=== PATIENT | female | born 1985 | race Caucasian/White ===

== ENCOUNTER 2025-06-19 17:02 | Emergency (ER) | payer OTHER, SELFPAY ==
--- NOTE | ~2025-06-19 | XR_ITS ---
EXAMINATION: XR wrist RT min 3V, 06/19/2025 17:45 CDT HISTORY: medial and lateral pain x1 month. No injury. COMPARISON: No comparisons available. Findings: No acute fracture or malalignment. No significant degenerative changes. Soft tissues unremarkable. Impression: No acute fracture or malalignment. Reviewed, dictated and finalized at location A. Impression: No acute fracture or malalignment.
--- OUTSIDE RECORDS SUMMARY | 2025-06-19 17:08 | XMS_ITS | Encounter Summary ---
Author Organization [facility] Address [address] [place] [address] Phone Care Team Providers Care Access Database Developer Name Role Phone Elayne Medina MD Primary Care Provider Janette Hernández MD Unavailable Unavail able Leny Davis APRN, DIRECTOR OF DIVERSITY AND INCLUSION Primary Care Provider + Fransisca Casarez MD Unavailable Unavailable Reason for Visit * Reason Comments Medication Refill Encounter Details Date Type Department Care Team (Late st Contact Info) Description 06/28/2023 [facility]ill [facility] [address] [place] [id number] [place] [address] [place] [address] Medication Refill Social History Tobacco Use Types Packs/Day Years Used Date Smoking Tobacco: Never Smokeless Tobacco: Never Alcohol Use Standard Drinks/Week Comments Yes 0 (1 standard drink = 0.6 oz pur e alcohol) occasioanally PHQ-2 Answer Date Recorded Total Score - Questions 1-9 0 09/02 Education Answer Date Recorded What is the highest level of school you have completed or the highest degree you have received? Some college, no degree 06/19/2020 Comments No Sex and Gender Information Value Date Recorded Sex Assigned at Female 06/21/2024 1:09 PM CDT Legal Sex Female 3:50 AM SENIOR DB2 SYSTEMS PROGRAMMER Gender Identity Female 06/21/2024 1:09 PM CDT Sexual Orientation Straight 06/21/2024 1: 09 PM CDT documented as of this encounter Miscellaneous Notes * Telephone Encounter - Yojana Castro RN - 06/30/2023 8:27 AM CDT Medication warning Per nursing clinical judgement, provider to review and approve the medication(s) order(s) if appropriate. Requested Prescriptions Pending Prescriptions Disp Refills citalopram (CeleXA) 40 MG Tablet [Pharmacy Med Name: CITALOPRAM 40MG TABLETS] 90 Tablet 0 Sig: TAKE 1 TABLET BY MOUTH DAILY Citalopram (Celexa) (6 Month Refill Only) Protocol Passed - 06/28/2023 8:32 PM Passed - No test in the past 12 months or most recent test was negative Passed - No active on record Passed - Citalopram dose is less than or equal to 40mg / day Passed - Visit with relevant provider in past 6 months or upcoming 90 days Recent Visits Date Type Provider Dept 04/26/23 Office Visit Elayne Medina MD [facility] Showing recent visits within past 182 days and meeting all other requirements Future Appointments Date Type Provider Dept 08/29/23 Appointment Elayne Medina MD [facility] Showing future appointments within next 90 days and meeting all other requirements Passed - Patient has established therapy with Citalopram for at least 6 months Passed - Has an encounter in the past 6 months with a depression, anxiety, adjustment disorder, OCD, or PTSD visit diagnosis documented in this encounter Plan of Treatment Not on file documented as of this encounter Visit Diagnoses Diagnosis Depression with anxiety Dysthymic disorder documented in this encounter Additional Health Concerns Infection Onset Date Last Indicated Resolved Time COVID - 19 11/14/2023 11/14/2023 11/24/2023 12:1 6 AM SENIOR DB2 SYSTEMS PROGRAMMER Influenza 11/14/2023 11/14/2023 11/21/2023 12:1 6 AM SENIOR DB2 SYSTEMS PROGRAMMER COVID - 19 08/05/2024 08/05/2024 08/06/2024 12:5 0 AM SENIOR DB2 SYSTEMS PROGRAMMER Assessment Noted Time PHQ-9 Depression Total Score: 0 09/17/20 8:00 AM SENIOR DB2 SYSTEMS PROGRAMMER documented as of this encounter Care Teams Access Database Developer Relationship Specialty Start Date End Date Elayne Medina MD PCP - General Family Medicine 06/13/18 11/14/23 Leny Davis, CYCLING INSTRUCTOR, DIRECTOR OF DIVERSITY AND INCLUSION [address] [place] [address] PCP - General Advanced Practice Nurse 11/15/23 Janette Hernández MD Obstetrics & Gynecology 09/18/18 12/08/23 Fransisca Casarez MD [address] [place] [address] Gynecology 12/09/23 documented as of this encounter
--- OUTSIDE RECORDS SUMMARY | 2025-06-19 17:08 | XMS_ITS | Encounter Summary ---
Author Organization [facility] Address [address] [place] [address] Phone Care Team Providers Care Safekeeping Clerk Name Role Phone Leny Davis APRN, MANAGER HOSPICE Primary Care Provider + Fransisca Casarez MD Unavailable Unavailable Reason for Visit * Reason Comments Medication Refill Encounter Details Date Type Department Care Team (Late st Contact Info) Description 03/05/2024 Refill [facility] - Family Medicine - [place] [address] [place] [address] Traci Gutierrez APRN, MARI [address] [address] Medication Refill Social History Tobacco Use Types Packs/Day Years Used Date Smoking Tobacco: Never Smokeless Tobacco: Never Alcohol Use Standard Drinks/Week Comments Yes 0 (1 standard drink = 0.6 oz pur e alcohol) occasioanally [facility] Utilities Answer Date Recorded In the past 12 months has [employer] electric, gas, oil, or water company threatened to shut off services in your home? No 12/09/2023 Social Connection and Isolation Panel Answer Date Recorded In a typical week, how many times do you talk on the phone with family, friends, or neighbors? More than three times a week 12/09/2023 How often do you get togethe r with friends or relatives? Once a week 12/09/2023 How often do you attend chur ch or zoroastrianism services? More than 4 times per year 12/09/2023 Do you belong to any clubs o r organizations such as jew groups, unions, fraternal or athletic groups, or school groups? Patient declined 12/09/2023 How often do you attend meet ings of the clubs or organizations you belong to? Patient declined 12/09/2023 Are you , , di vorced, , never , or living with a partner? Living with partner 12/09/2023 AUDIT-C Answer Date Recorded Q1: How often do you have a drink containing alc ohol? Never 12/09/2023 Q2: How many drinks containi ng alcohol do you have on a typical day when you are drinking? 7 to 9 12/09/2023 Q3: How often do you have six or more drinks on one occasion? Never 12/09/2023 Overall Financial Resource Strain (CARDIA) Answe r Date Recorded How hard is it for you to pa y for the very basics like food, housing, medical care, and heating? Somewhat hard 12/09/2023 PHQ-2 Answer Date Recorded Total Score - Questions 1-9 0 09/02 [facility] - Occupational Stress Questionnaire Answer Date Recorded Do you feel stress - tense, restless, nervous, or anxious, or unable to sleep at night because your mind is troubled all the time - these days? To some extent 12/09/2023 Exercise Vital Sign Answer Date Recorde d On average, how many days pe r week do you engage in moderate to strenuous exercise (like a brisk walk)? 3 days 12/09/2023 On average, how many minutes do you engage in exercise at this level? 20 min 12/09/2023 Hunger Vital Sign Answer Date Recorded Within the past 12 months, y ou worried that your food would run out before you got the money to buy more. Sometimes true Within the past 12 months, t he food you bought just didn't last and you didn't have money to get more. Sometimes true 05/2024 PRAPARE - Transportation Answer Date Re corded In the past 12 months, has l ack of transportation kept you from medical appointments or from getting medications? No 05/2024 In the past 12 months, has l ack of transportation kept you from meetings, work, or from getting things needed for daily living? No 12/09/2023 Housing Stability Vital Sign Answer Omkar e Recorded In the last 12 months, was t here a time when you were not able to pay the mortgage or rent on time? No 12/09/2023 In the last 12 months, how many places have you lived? 2 12/09/2023 In the last 12 months, was t here a time when you did not have a steady place to sleep or slept in a residential (including now)? No 12/09/2023 Education Answer Date Recorded What is the highest level of school you have completed or the highest degree you have received? Some college, no degree 06/19/2020 Sexually Active Control Partners Comments Yes Male Comments No Sex and Gender Information Value Date Recorded Sex Assigned at Female 06/21/2024 1:09 PM CDT Legal Sex Female 3:50 AM HAND THERMAL CUTTER Gender Identity Female 06/21/2024 1:09 PM CDT Sexual Orientation Straight 06/21/2024 1: 09 PM CDT documented as of this encounter Miscellaneous Notes * Telephone Encounter - Yojana Castro RN - 03/06/2024 9:12 AM CDT Sent to [facility] in [place] after receiving request. documented in this encounter Plan of Treatment Not on file documented as of this encounter Visit Diagnoses Diagnosis Depression with anxiety Dysthymic disorder documented in this encounter Additional Health Concerns Infection Onset Date Last Indicated Resolved Time COVID - 19 08/05/2024 08/05/2024 08/06/2024 12:5 0 AM HAND THERMAL CUTTER Assessment Noted Time PHQ-9 Depression Total Score: 0 09/17/20 22 8:00 AM HAND THERMAL CUTTER documented as of this encounter Care Teams Safekeeping Clerk Relationship Specialty Start Date End Date Leny Davis, REC THERAPIST, MANAGER HOSPICE [address] [place] [id number] PCP - General Advanced Practice Nurse 11/15/23 Fransisca Casarez MD [address] [place] [address] Gynecology 12/09/23 documented as of this encounter
--- OUTSIDE RECORDS SUMMARY | 2025-06-19 17:08 | XMS_ITS | Encounter Summary ---
Author Organization [facility] Address [address] [place] [address] Phone Care Team Providers Care Review Trainer Name Role Phone Elayne Medina MD Primary Care Provider Janette Hernández MD Unavailable Unavail able Leny Davis SCRAP CRANE OPERATOR, CERTIFIED CAREGIVER Primary Care Provider + Fransisca Casarez MD Unavailable Unavailable Reason for Visit * Reason Comments Medication Refill Encounter Details Date Type Department Care Team (Late st Contact Info) Description 10/13/2021 Refill [facility] [address] [place] [address] Garth Lozano MD [address] [place] [address] Medication Refill Social History Tobacco Use Types Packs/Day Years Used Date Smoking Tobacco: Never Smokeless Tobacco: Never Alcohol Use Standard Drinks/Week Comments No 0 (1 standard drink = 0.6 oz pur e alcohol) PHQ-2 Answer Date Recorded Total Score - Questions 1-9 5 04/2022 Education Answer Date Recorded What is the highest level of school you have completed or the highest degree you have received? Some college, no degree 06/19/2020 Comments No Sex and Gender Information Value Date Recorded Sex Assigned at Female 06/21/2024 1:09 PM CDT Legal Sex Female 3:50 AM LUMBER TRIPPER Gender Identity Female 06/21/2024 1:09 PM CDT Sexual Orientation Straight 06/21/2024 1: 09 PM CDT COVID-19 Exposure Response Date Recorded In the last month, have you been in contact with someone who was confirmed or suspected to have Coronavirus / COVID-19? No / Unsure 10/09/2021 10:55 AM LUMBER TRIPPER documented as of this encounter Miscellaneous Notes * Telephone Encounter - Yi Arreola RN - 10/14/2021 12:39 PM CST Name from pharmacy: FLUCONAZOLE 150 MG TABLET Will file in chart as: fluconazole (DIFLUCAN) 150 MG Tablet The original prescription was discontinued on 10/09/2021 by Mounika Lu, PAC ER TRIPPER documented in this encounter Plan of Treatment Not on file documented as of this encounter Visit Diagnoses Not on filedocumented in this encounter Additional Health Concerns Infection Onset Date Last Indicated Resolved Time COVID - 19 11/14/2023 11/14/2023 11/24/2023 12:1 6 AM LUMBER TRIPPER Influenza 11/14/2023 11/14/2023 11/21/2023 12:1 6 AM LUMBER TRIPPER COVID - 19 08/05/2024 08/05/2024 08/06/2024 12:5 0 AM LUMBER TRIPPER Assessment Noted Time PHQ-9 Depression Total Score: 5 10/09/19 22 11:00 AM LUMBER TRIPPER documented as of this encounter Care Teams Review Trainer Relationship Specialty Start Date End Date Elayne Medina MD PCP - General Family Medicine 06/13/18 11/14/23 Leny Davis, SCRAP CRANE OPERATOR, CERTIFIED CAREGIVER [address] [place] [address] PCP - General Advanced Practice Nurse 11/15/23 Janette Hernández MD Obstetrics & Gynecology 09/18/18 12/08/23 Fransisca Casarez MD [address] [place] [address] Gynecology 12/09/23 documented as of this encounter
--- OUTSIDE RECORDS SUMMARY | 2025-06-19 17:08 | XMS_ITS | Encounter Summary ---
Author Organization [facility] Address [address] [place] [address] Phone Care Team Providers Care Buggy Ladle Tender Name Role Phone Janette Hernández MD Unavailable Unavail able Leny Davis APRN, REHABILITATION CASE COORDINATOR Primary Care Provider + Fransisca Casarez MD Unavailable Unavailable Reason for Visit * Reason Comments Medication Refill Encounter Details Date Type Department Care Team (Late st Contact Info) Description 12/08/2023 Refill [facility] - Family Medicine [facility] [address] [place] [address] Traci Gutierrez APRN, MARI [address] [address] Medication Refill Social History Tobacco Use Types Packs/Day Years Used Date Smoking Tobacco: Never Smokeless Tobacco: Never Alcohol Use Standard Drinks/Week Comments Yes 0 (1 standard drink = 0.6 oz pur e alcohol) occasioanally [facility] Utilities Answer Date Recorded In the past 12 months has e electric, gas, oil, or water company threatened [...] often do you attend chur ch or pentecostalism services? More than 4 times per year 12/09/2023 Do you belong to any clubs o r organizations such as quaker groups, unions, fraternal or athletic groups, or [...] Total Score - Questions 1-9 0 09/02 [facility] - Occupational [...] place to sleep or slept in a retirement (including now)? No 12/09/2023 Education Answer Date Recorded What is the highest level of school you have completed or the highest degree you have received? Some college, no degree 06/19/2020 Sexually Active Control Partners Comments Yes Male Comments No Sex and Gender Information Value Date Recorded Sex Assigned at Female 06/21/2024 1:09 PM CDT Legal Sex Female 3:50 AM GEOPHYSICAL OBSERVER Gender Identity Female 06/21/2024 1:09 PM CDT Sexual Orientation Straight 06/21/2024 1: 09 PM CDT documented as of this encounter Functional Status * AUDIT-C Score Answer Date of Assessment Author 3 12/09/2023 10:49 AM GEOPHYSICAL OBSERVER Feeligoenmanuel, System Background * Q1: How often do you have a drink containing alcohol? Answer Date of Assessment Author Never 12/09/2023 10:49 AM GEOPHYSICAL OBSERVER Christy, System Background * Q2: How many drinks containing alcohol do you have on a typical day when you are drinking? Answer Date of Assessment Author 7 to 9 12/09/2023 10:49 AM GEOPHYSICAL OBSERVER RockBeepatricia, System Background * Q3: How often do you have six or more drinks on one occasion? Answer Date of Assessment Author Never 12/09/2023 10:49 AM GEOPHYSICAL OBSERVER Christy, System Background * Question Answer Date of Assessment Author Little interest or pleasure in doing things Not at all 12/09/2023 11:41 AM Sabine Thornton, MILDRED Feeling down, depressed, or hopeless Not at all 12/09/2023 11:41 AM Sabine Thornton CMA * Over the past 2 weeks, how often have you been bothered by any of the following problems? Question Answer Date of Assessment Author Patient Health Questionnaire -2 Score 0 12/09/2023 11:41 AM GEOPHYSICAL OBSERVER Sabine Lea CMA documented as of this encounter Miscellaneous Notes * Telephone Encounter - Yojana Castro RN - 12/09/2023 8:33 AM CST Signed 1 week ago (11/28/2023): albuterol 108 (90 Base) MCG/ACT Aerosol Solution Sig: take 2 Puffs by inhalation every 6 hours as needed for Wheezing. Disp: 6.7 g Refills: 0 Signed by: Leny Davis APRN, REHABILITATION CASE COORDINATOR HYSICAL OBSERVER * Telephone Encounter - Mee Fernandes RN - 12/08/2023 8:39 AM GEOPHYSICAL OBSERVER Duplicate. Sent to this pharmacy 11-28-23 HYSICAL OBSERVER documented in this encounter Plan of Treatment Not on file documented as of this encounter Visit Diagnoses Diagnosis Moderate persistent asthma without complication Unspecified asthma documented in this encounter Additional Health Concerns Infection Onset Date Last Indicated Resolved Time COVID - 19 08/05/2024 08/05/2024 08/06/2024 12:5 0 AM GEOPHYSICAL OBSERVER Assessment Noted Time PHQ-9 Depression Total Score: 0 09/17/20 22 8:00 AM GEOPHYSICAL OBSERVER documented as of this encounter Care Teams Buggy Ladle Tender Relationship Specialty Start Date End Date Leny Davis APRN, REHABILITATION CASE COORDINATOR [address] [place] [address] PCP - General Advanced Practice Nurse 11/15/23 Janette Hernández MD Obstetrics & Gynecology 09/18/18 12/08/23 Fransisca Casarez MD [address] [place] [address] Gynecology 12/09/23 documented as of this encounter
--- OUTSIDE RECORDS SUMMARY | 2025-06-19 17:08 | XMS_ITS | Encounter Summary ---
Author Organization [facility] Address [address] [place] [address] Phone Care Team Providers Care Last Greaser Name Role Phone Elayne Medina MD Primary Care Provider Janette Hernández MD Unavailable Unavail able Leny Davis APRN, ADMITTANCE ATTENDANT Primary Care Provider + Fransisca Casarez MD Unavailable Unavailable Reason for Visit * Reason Comments Medication Refill Encounter Details Date Type Department Care Team (Late st Contact Info) Description 01/12/2021 Refill [facility] [address] [place] [address] [place] [address] [place] [address] Medication Refill Social History Tobacco Use Types Packs/Day Years Used Date Smoking Tobacco: Never Smokeless Tobacco: Never Alcohol Use Standard Drinks/Week Comments No 0 (1 standard drink = 0.6 oz pur e alcohol) PHQ-2 Answer Date Recorded Total Score - Questions 1-9 0 06/03 Education Answer Date Recorded What is the highest level of school you have completed or the highest degree you have received? Some college, no degree 06/19/2020 Comments No Sex and Gender Information Value Date Recorded Sex Assigned at Female 06/21/2024 1:09 PM CDT Legal Sex Female 3:50 AM RESPIRATORY CARE ASSISTANT Gender Identity Female 06/21/2024 1:09 PM CDT Sexual Orientation Straight 06/21/2024 1: 09 PM CDT documented as of this encounter Plan of Treatment Not on file documented as of this encounter Visit Diagnoses Not on filedocumented in this encounter Additional Health Concerns Infection Onset Date Last Indicated Resolved Time COVID - 19 08/03/2021 08/03/2021 08/23/2021 12:1 6 AM RESPIRATORY CARE ASSISTANT COVID - 19 Confirmed 08/03/2021 08/03/2021 021 12:16 AM RESPIRATORY CARE ASSISTANT COVID - 19 11/14/2023 11/14/2023 11/24/2023 12:1 6 AM RESPIRATORY CARE ASSISTANT Influenza 11/14/2023 11/14/2023 11/21/2023 12:1 6 AM RESPIRATORY CARE ASSISTANT COVID - 19 08/05/2024 08/05/2024 08/06/2024 12:5 0 AM RESPIRATORY CARE ASSISTANT Assessment Noted Time PHQ-9 Depression Total Score: 0 06/20/20 11:18 AM CDT documented as of this encounter Care Teams Last Greaser Relationship Specialty Start Date End Date Elayne Medina MD PCP - General Family Medicine 06/13/18 11/14/23 Leny Davis APRN, ADMITTANCE ATTENDANT [address] [place] [address] PCP - General Advanced Practice Nurse 11/15/23 Janette Hernández MD Obstetrics & Gynecology 09/18/18 12/08/23 Fransisca Casarez MD [address] [place] [address] Gynecology 12/09/23 documented as of this encounter
--- OUTSIDE RECORDS SUMMARY | 2025-06-19 17:08 | XMS_ITS | Encounter Summary ---
Author Organization [facility] Address [address] [place] [address] Phone Care Team Providers Care Recovery Auditor Name Role Phone Elayne Medina MD Primary Care Provider Janette Hernández MD Unavailable Unavail able Leny Davis APRN, TREE SURGEON Primary Care Provider + Fransisca Casarez MD Unavailable Unavailable Reason for Visit * Reason Comments Medication Refill Encounter Details Date Type Department Care Team (Late st Contact Info) Description 08/17/2022 Refill [facility] - Family Medicine [facility] [address] [place] [address] Mounika Lu, [facility] [address] [place] [address] Medication Refill Social History Tobacco Use Types [...] PM CDT Legal Sex Female 3:50 AM PILOT CONTROL OPERATOR HELPER Gender Identity Female 06/21/2024 1:09 PM CDT Sexual Orientation Straight 06/21/2024 1: 09 PM CDT documented as of this encounter Miscellaneous Notes * Telephone Encounter - Sujey Olivier RMA - 08/17/2022 12:41 PM PILOT CONTROL OPERATOR HELPER scheduled T CONTROL OPERATOR HELPER * Telephone Encounter - Fidelina Tate RN - 08/17/2022 12:16 PM PILOT CONTROL OPERATOR HELPER Patient is returning call. There are no specific directions as to what to do for patient. Was goingto schedule an appointment but did not want to make a visit if it is not needed. Please advise on what patient was being called about and call patient back. Thanks! T CONTROL OPERATOR HELPER * Telephone Encounter - Sujey Olivier RMA - 08/17/2022 11:02 AM PILOT CONTROL OPERATOR HELPER LVM T CONTROL OPERATOR HELPER * Telephone Encounter - Amina Blackwood RN - 08/17/2022 10:43 AM PILOT CONTROL OPERATOR HELPER Medication failed the protocol, provider to review and approve the medication order if appropriate. Requested Prescriptions Pending Prescriptions Disp Refills citalopram (CeleXA) 40 MG Tablet [Pharmacy Med Name: CITALOPRAM HBR 40 MG TABLET] 90 Tablet 0 Sig: TAKE 1 TABLET BY MOUTH EVERY DAY IN THE MORNING Citalopram (Celexa) (6 Month Refill Only) Protocol Failed - 08/17/2022 12:01 AM Failed - Visit with relevant provider in past 6 months or upcoming 90 days Recent Visits No visits were found meeting these conditions. Showing recent visits within past 182 days and meeting all other requirements Future Appointments No visits were found meeting these conditions. Showing future appointments within next 90 days and meeting all other requirements Failed - Has an encounter in the past 6 months with a depression, anxiety, adjustment disorder, OCD, or PTSD visit diagnosis Passed - No test in the past 12 months or most recent test was negative Passed - No active on record Passed - Citalopram dose is less than or equal to 40mg / day Passed - Patient has established therapy with Citalopram for at least 6 months T CONTROL OPERATOR HELPER documented in this encounter Plan of Treatment Not on file documented as of this encounter Visit Diagnoses Diagnosis Depression with anxiety Dysthymic disorder documented in this encounter Additional Health Concerns Infection Onset Date Last Indicated Resolved Time COVID - 11/14/2023 11/14/2023 11/24/2023 12:1 6 AM PILOT CONTROL OPERATOR HELPER Influenza 11/14/2023 11/14/2023 11/21/2023 12:1 6 AM PILOT CONTROL OPERATOR HELPER COVID - 08/05/2024 08/05/2024 08/06/2024 12:5 0 AM PILOT CONTROL OPERATOR HELPER Assessment Noted Time PHQ-9 Depression Total Score: 5 10/09/19 11:00 AM PILOT CONTROL OPERATOR HELPER documented as of this encounter Care Teams Recovery Auditor Relationship Specialty Start Date End Date Elayne Medina MD PCP - General Family Medicine 06/13/18 11/14/23 Leny Davis APRN, TREE SURGEON [address] [place] [address] PCP - General Advanced Practice Nurse 11/15/23 Janette Hernández MD Obstetrics & Gynecology 09/18/18 12/08/23 Fransisca Casarez MD [address] [place] [address] Gynecology 12/09/23 documented as of this encounter
--- OUTSIDE RECORDS SUMMARY | 2025-06-19 17:08 | XMS_ITS | Encounter Summary ---
Author Organization [facility] Address [address] [place] [address] Phone Care Team Providers Care Proof Machine Operator Name Role Phone Leny Davis MACHINE SANDER, SOLUTION DEVELOPER Primary Care Provider + Fransisca Casarez MD Unavailable Unavailable Reason for Visit * Reason Comments Medication Refill Encounter Details Date Type Department Care Team (Late st Contact Info) Description 04/10/2024 [facility]ill [facility] [address] [place] [address] Leny Davis, MACHINE SANDER, SOLUTION DEVELOPER [address] [place] [address] Medication Refill Social History Tobacco Use Types Packs/Day Years Used Date Smoking Tobacco: Never Smokeless Tobacco: Never Alcohol Use Standard Drinks/Week Comments Yes 0 (1 standard drink = 0.6 oz pur e alcohol) occasionally [facility] Utilities Answer Date Recorded In the past 12 months has [employer] electric, gas, oil, or water company threatened [...] often do you attend chur ch or evangelical services? More than 4 times per year 12/09/2023 Do you belong to any clubs o r organizations such as gnosticist groups, unions, fraternal or athletic groups, or [...] Total Score - Questions 1-9 0 09/02 [facility] of Occupat ional Health - Occupational Stress [...] place to sleep or slept in a mcc (including now)? No 12/09/2023 Education Answer Date Recorded What is the highest level of school you have completed or the highest degree you have received? Some college, no degree 06/19/2020 Sexually Active Control Partners Comments Yes Male Comments No Sex and Gender Information Value Date Recorded Sex Assigned at Female 06/21/2024 1:09 PM CDT Legal Sex Female 3:50 AM SALES LEAD GENERATOR Gender Identity Female 06/21/2024 1:09 PM CDT [...] 19 08/05/2024 08/05/2024 08/06/2024 12:5 0 AM SALES LEAD GENERATOR Assessment Noted Time PHQ-9 Depression Total Score: 0 09/17/20 22 8:00 AM SALES LEAD GENERATOR documented as of this encounter Care Teams Proof Machine Operator Relationship Specialty Start Date End Date Leny Davis, MACHINE SANDER, SOLUTION DEVELOPER [address] [place] [address] PCP - General Advanced Practice Nurse 11/15/23 Fransisca Casarez MD [address] [place] [address] Gynecology 12/09/23 documented as of this encounter
--- OUTSIDE RECORDS SUMMARY | 2025-06-19 17:08 | XMS_ITS | Clinical Summary ---
Author Organization [facility] Address [address] [place] [address] Phone Care Team Providers Care Language Translator Name Role Phone Leny Davis CIGARETTE MAKING MACHINE CATCHER, AIR INTELLIGENCE SPECIALIST Primary Care Provider + Fransisca Casarez MD Unavailable Unavailable Allergies Active Allergy Reactions Criticality Noted Date Comments Azithromycin Other (see Comments) 03/15/2009 Pt states that she gets dizzy and then faints. Ciprofloxacin Hcl Swelling 11/03/2018 Red Dye #40 (Allura Red) Hives,Shortness of Breath,Itching,Anxi ety 10/07/2023 Per patient allergies to ALL Red Dye. Wound Dressings Rash 11/10/2023 Tomato Hives 03/31/2020 Throat swells, but is able to eat catsup Medications acetaminophen (TYLENOL) 650 MG Tablet Controlled Release Take 650 mg by mouth every 6 hours as needed. Active azelastine (ASTELIN) 0.1 % Solution 2 Sprays by Nasal route 2 times daily. Use in each nostril as directed 1 Bottle 02/11/20 20 Active other by Other route daily. Truvy weight loss pills taken PO daily with meals Active ondansetron (ZOFRAN-ODT) 4 MG TABLET DISPERSIBLE Take 1 Tablet by mouth every 8 hours as needed for Nausea - 1st line. 20 Tablet 11/15/19 24 Active citalopram (CeleXA) 40 MG TabletIndication s:Depression with anxiety TAKE 1 TABLET BY MOUTH DAILY 30 Tablet 2 01/22/20 25 Active pantoprazole (PROTONIX) 40 MG Tablet Delayed Response TAKE 1 TABLET BY MOUTH DAILY 90 Tablet 2 02/14/20 25 Active cetirizine (ZyrTEC) 10 MG Tablet TAKE 1 TABLET BY MOUTH DAILY 90 Tablet 1 03/14/20 25 Active famotidine (PEPCID) 20 MG Tablet TAKE 1 TABLET BY MOUTH DAILY 90 Tablet 1 03/14/20 25 Active albuterol 108 (90 Base) MCG/ACT Aerosol SolutionIndicati ons:Moderate persistent asthma without complication INHALE 2 PUFFS BY MOUTH EVERY 6 HOURS NEEDED FOR WHEEZING 6.7 g 04/12/20 25 Active Norethindrone Acet-Ethinyl Est (BENNIE 1.530 PO) Take by mouth. Active Permethrin-Nit Remover (Nix Complete Lice Treatment) 1 & 0.25 % KitIndications:P ediculosis Use as directed for the treatment of head lice 1 Kit 1 04/15/20 25 Active Advair Diskus 250-50 MCG/ACT AEROSOL POWDER, BREATH ACTIVATEDIndicat ions:Moderate persistent asthma without complication INHALE 1 PUFF BY MOUTH EVERY MORNING AND EVERY EVENING 60 Each 3 05/20/20 25 Active busPIRone (BUSPAR) 15 MG TabletIndication s:Depression with anxiety TAKE 1 TABLET BY MOUTH TWICE DAILY 180 Tablet 1 06/14/20 25 Active busPIRone (BUSPAR) 15 MG TabletIndication s:Depression with anxiety Take 1 Tablet by mouth 2 times daily. 180 Tablet 1 03/06/20 24 025 Discontinued Active Problems Problem Noted Date Diagnosed Date Iron deficiency anemia 10/27/2023 Moderate persistent asthma without complication 04/26/2023 Gastroesophageal reflux disease 04/26/2023 Menorrhagia with regular cycle 02/01/2023 Anemia 12/10/2021 Calculus of gallbladder with chronic cholecystitis without obstruction 11/05/2018 Depression with anxiety 06/13/2018 Class 3 severe obesity due t o excess calories without serious comorbidity with body mass index (BMI) of 50.0 to 59.9 in adult 06/13/2018 Migraine without aura and wi thout status migrainosus, not intractable 06/13/2018 Chronic fatigue 06/13/2018 Chronic pain of left knee 06/13/2018 Encounters Date Type Department Care Team Description 06/13/2025 [facility] [address] [place] [address] Leny Davis, CIGARETTE MAKING MACHINE CATCHER, AIR INTELLIGENCE SPECIALIST Medication Refill 05/19/2025 [facility] [place] [address] Leny Davis, CIGARETTE MAKING MACHINE CATCHER, AIR INTELLIGENCE SPECIALIST Medication Refill 04/15/2025 Telephone [facility] [address] [place] [address] Leny Davis, CIGARETTE MAKING MACHINE CATCHER, AIR INTELLIGENCE SPECIALIST 04/15/2025 [facility] [address] [place] [phone] Leny Davis, CIGARETTE MAKING MACHINE CATCHER, AIR INTELLIGENCE SPECIALIST Advice Only; Lice 04/11/2025 Refill [facility] [address] [place] [address] Leny Davis, CIGARETTE MAKING MACHINE CATCHER, AIR INTELLIGENCE SPECIALIST Medication Refill from Last 3 Months Immunizations Immunization Administration Dates Next Due DTP Vaccine 07/07/1989, 7,01/08/1986,1984,1984 Hepatitis B Vaccine, Pediatric/adolescent 11/20/1999,07/07/1999,12/11/1996 Influenza Vaccine, Quadrivalent, PF 10/04,06/06/2019,09/18/2018,2017,07/04/2017 MMR Vaccine 03/30/2012,08/01/1989,1984 Measles Vaccine 07/31/1993 OPV 07/07/1989, 7,01/08/1986,1984,1984 Pneumococcal Vaccine Adult - 23 Valent 03/30/2012 TD VACCINE 07/07/1999 TDAP Vaccine 03/29/2012 Family History Medical History Relation Name Comments Cancer Mother Amina Veronica UTERINE Chronic Obstructive Pulmonary Disease Mother Isidra Martin Hypertension Mother Amina Martin Migraines Mother Amina Martin Seizures Mother Amina Martin Stroke Mother Amina Martin Relation Name Status Comments Father Alive DOES NOT KNOW M [facility] ABOUT FATHER Mother Amina Martin Alive Social History Tobacco Use Types Packs/Day Years Used Date Smoking Tobacco: Never Smokeless Tobacco: Never Tobacco Cessation:Counseling Given: Yes Alcohol Use Standard Drinks/Week Comments Yes 0 (1 standard drink = 0.6 oz pur e alcohol) occasionally [facility] Utilities Answer Date Recorded In the past 12 months has th e electric, gas, oil, or water company threatened to shut off services in your home? Yes 01/11/2025 Social Connection and Isolation Panel Answer Date Recorded In a typical week, how many times do you talk on the phone with family, friends, or neighbors? More than three times a week 01/11/2025 How often do you get togethe r with friends or relatives? Once a week 01/11/2025 How often do you attend [facility] or caodaism services? 1 to 4 times per year 01/11/2025 Do you belong to any clubs o r organizations such as lutheran groups, unions, fraternal or athletic groups, or school groups? No 01/11/2025 How often do you attend meet ings of the clubs or organizations you belong to? Never 01/11/2025 Are you , , di vorced, , never , or living with a partner? Living with partner 01/11/2025 AUDIT-C Answer Date Recorded Q1: How often do you have a drink containing alc ohol? Monthly or less 01/11/2025 Q2: How many drinks containi ng alcohol do you have on a typical day when you are drinking? 3 or 4 01/11/2025 Q3: How often do you have si x or more drinks on one occasion? Less than monthly 01/11/2025 Overall Financial Resource Strain (CARDIA) Answe r Date Recorded How hard is it for you to pa y for the very basics like food, housing, medical care, and heating? Somewhat hard 01/11/2025 PHQ-2 Answer Date Recorded Total Score - Questions 1-9 0 01/01 [facility] of Occupat ional Health - Occupational Stress Questionnaire Answer Date Recorded Do you feel stress - tense, restless, nervous, or anxious, or unable to sleep at night because your mind is troubled all the time - these days? To some extent 01/11/2025 Exercise Vital Sign Answer Date Recorde d On average, how many days pe r week do you engage in moderate to strenuous exercise (like a brisk walk)? 1 day Minutes of Exercise per Session Not on file 01/11/2025 Hunger Vital Sign Answer Date Recorded Within the past 12 months, y ou worried that your food would run out before you got the money to buy more. Sometimes true Within the past 12 months, t he food you bought just didn't last and you didn't have money to get more. Sometimes true 08/2025 PRAPARE - Transportation Answer Date Re corded In the past 12 months, has l ack of transportation kept you from medical appointments or from getting medications? No 01/01 In the past 12 months, has l ack of transportation kept you from meetings, work, or from getting things needed for daily living? No 01/11/2025 Housing Stability Vital Sign Answer Omkar e [...] place to sleep or slept in a group home (including now)? No 12/09/2023 Housing Stability Vital Sign Answer Omkar e Recorded In the last 12 months, was t here a time when you were not able to pay the mortgage or rent on time? No 01/11/2025 Number of Times Moved in the Last Year Not on fi le 01/11/2025 At any time in the past [address] [facility], were you homeless or living in a group home (including now)? No 01/11/2025 Education Answer Date Recorded What is the highest level of school you have completed or the highest degree you have received? Some college, no degree 06/19/2020 Sexually Active Control Partners Comments Yes [employer] None Male Comments No Sex and Gender Information Value Date Recorded Sex Assigned at Female 06/21/2024 1:09 PM CDT Legal Sex Female 3:50 AM CHIEF STATION ENGINEER Gender Identity Female 06/21/2024 1:09 PM CDT Sexual Orientation Straight 06/21/2024 1: 09 PM CDT Last Filed Vital Signs Vital Sign Reading Time Taken Comments Blood Pressure 116/70 01/11/2025 7:54 AM CDT Pulse 68 01/11/2025 7:54 AM CDT Temperature 36.5 C (97.7 F) 01/11/2025 7:54 AM CDT Respiratory Rate 12 01/11/2025 7:54 AM CDT Oxygen Saturation 99% 01/11/2025 7:54 AM CDT Inhaled Oxygen Concentration - - Weight 130.5 kg (287 lb 9.6 oz) 01/11/2025 7:54 AM CDT Height 170.2 cm (5' 7) 01/11/2025 7:54 AM CDT Body Mass Index 45.04 01/11/2025 7:54 AM CDT Plan of Treatment Health Maintenance Due Date Last Done Comments Mammogram 1984 Human Papillomavirus (HPV) Immunization (1 - 3-dose SCDM series) 2011 Pneumococcal Immunization Combined (2 of 2 - PCV) 03/30/2013 03/30/2012 DTaP/Tdap/Td Immunization (7 - Td or Tdap) 03/29/2022 03/29/2012, 07/07/1999, 07/07/1989, Additional history exists Td Immunization Every 10 Years (Adults With 1 Tdap) 03/29/2022 03/29/2012, 07/07/1999 Discussion re Starting/Frequency of Mammograms 2024 Influenza Immunization (#1) 06/03/202510/04, 06/06/2019, 09/18/2018, Additional history exists SARS-COV-2 Immunization ( season) 2025 Pap Smear 06/08/2025 06/08/2022, 01/01, 01/31/2012, Additional history exists Cervical Cancer Screening (CCS) 06/08/2027 HPV/Cotest 06/08/2027 06/08/2022 Respiratory Syncytial Virus (RSV) Immunization (Adult) (1 - 1-dose 75+ series) 2059 Hepatitis B Immunization Completed 000, 07/07/1999, 12/11/1996 Hepatitis C Virus (HCV) Screening Completed 11/22/2018 Meningococcal Immunization (ACWY) Aged Out No longer eligible based on patient's age to complete this topic Rotavirus Immunization Aged Out No lo nger eligible based on patient's age to complete this topic Procedures Procedure Name Priority Date/Time Associated Diagnosis Comments HUMAN PAPILLOMA VIRUS (HPV) 06/08/2022 12:00 AM CDT PATHOLOGY CYTOLOGY DIGITAL ACCOUNT DIRECTOR 06/08/2022 12:00 AM CDT HEPATITIS C ANTIBODY Routine 11/22/2018 from Last 3 Months or Most Recently Relevant to Health Maintenance Results * PATHOLOGY CYTOLOGY DIGITAL ACCOUNT DIRECTOR (06/08/2022 12:00 AM CDT) 06/08/2022 Provider Scan PATHOLOGY/CYTOLOGY ORDERABLES Fi nal Result Performing Organization Address City/[facility]/ZIP Co de Phone Number SCAN * HUMAN PAPILLOMA VIRUS (HPV) (06/08/2022 12:00 AM CDT) 06/08/2022 us Provider Scan LAB SEND OUTS Final Result SCAN * HEPATITIS C ANTIBODY (11/22/2018) Blood specimen (specimen) Jalen Merlos DO CHEMISTRY ORDERABLES Final R esult from Last 3 Months or Most Recently Relevant to Health Maintenance Insurance MEDICAID [place] Care Teams Language Translator Relationship Specialty Start Date End Date Leny Davis, CIGARETTE MAKING MACHINE CATCHER, AIR INTELLIGENCE SPECIALIST [address] [place] [address] PCP - General Advanced Practice Nurse 11/15/23 Fransisca Casarez MD [address] [place] [address] Gynecology 12/09/23
--- OUTSIDE RECORDS SUMMARY | 2025-06-19 17:08 | XMS_ITS | Encounter Summary ---
Author Organization [facility] Address [address] [place] [address] Phone Care Team Providers Care Gauntlet Pairer Name Role Phone Elayne Medina MD Primary Care Provider Janette Hernández MD Unavailable Unavail able Leny Davis APRN, PHOTOGRAPHER APPRENTICE LITHOGRAPHIC Primary Care Provider + Fransisca Casarez MD Unavailable Unavailable Reason for Visit * Reason Comments Medication Refill Encounter Details Date Type Department Care Team (Late st Contact Info) Description 11/14/2023 Refill [facility] [address] [place] [phone] [place] [address] [place] [address] Medication Refill Social History Tobacco Use Types [...] PM CDT Legal Sex Female 3:50 AM WINDOWS SERVER SPECIALIST Gender Identity Female 06/21/2024 1:09 PM CDT Sexual Orientation Straight 06/21/2024 1: 09 PM CDT documented as of this encounter Miscellaneous Notes * Telephone Encounter - Yojana Castro RN - 11/15/2023 7:07 AM CST NPT with Leny 11/28/23 - not sure why her PCP was changed at this time since she has NOT transferred to [facility] as she has NOT seen patient. Medication failed the protocol, provider to review and approve the medication order if appropriate. Requested Prescriptions Pending Prescriptions Disp Refills citalopram (CeleXA) 40 MG Tablet [Pharmacy Med Name: CITALOPRAM 40MG TABLETS] 30 Tablet 0 Sig: TAKE 1 TABLET BY MOUTH DAILY Citalopram (Celexa) (6 Month Refill Only) Protocol Failed - 11/14/2023 8:31 AM Failed - Visit with relevant provider in past 6 months or upcoming 90 days Recent Visits No visits were found meeting these conditions. Showing recent visits within past 182 days and meeting all other requirements Future Appointments Date Type Provider Dept 11/28/23 Appointment Leny Davis, DYE LAB TECHNICIAN, PHOTOGRAPHER APPRENTICE LITHOGRAPHIC [facility] Showing future appointments within next 90 days [...] with Citalopram for at least 6 months OWS SERVER SPECIALIST * Telephone Encounter - Sujey Olivier RMA - 11/14/2023 3:02 PM WINDOWS SERVER SPECIALIST done OWS SERVER SPECIALIST * Telephone Encounter - Yojana Castro RN - 11/14/2023 2:16 PM CST No Showed last OV with Dr Holly in August. Needs JARROD for her refills. OWS SERVER SPECIALIST documented in this encounter Plan of Treatment Not on file documented as of this encounter Visit Diagnoses Diagnosis Depression with anxiety Dysthymic disorder documented in this encounter Additional Health Concerns Infection Onset Date Last Indicated Resolved Time COVID - 19 11/14/2023 11/14/2023 11/24/2023 12:1 6 AM WINDOWS SERVER SPECIALIST Influenza 11/14/2023 11/14/2023 11/21/2023 12:1 6 AM WINDOWS SERVER SPECIALIST COVID - 19 08/05/2024 08/05/2024 08/06/2024 12:5 0 AM WINDOWS SERVER SPECIALIST Assessment Noted Time PHQ-9 Depression Total Score: 0 09/17/20 8:00 AM WINDOWS SERVER SPECIALIST documented as of this encounter Care Teams Gauntlet Pairer Relationship Specialty Start Date End Date Elayne Medina MD PCP - General Family Medicine 06/13/18 11/14/23 Leny Davis, DYE LAB TECHNICIAN, PHOTOGRAPHER APPRENTICE LITHOGRAPHIC [address] [place] [address] PCP - General Advanced Practice Nurse 11/15/23 Janette Hernández MD Obstetrics & Gynecology 09/18/18 12/08/23 Fransisca Casarez MD [address] [place] [address] Gynecology 12/09/23 documented as of this encounter
--- OUTSIDE RECORDS SUMMARY | 2025-06-19 17:08 | XMS_ITS | Encounter Summary ---
Author Organization [facility] Address [address] [place] [address] Phone Care Team Providers Care Aviation Warfare Systems Operator Name Role Phone Elayne Medina MD Primary Care Provider [phone] Janette Hernández MD Unavailable Unavail able Leny Davis APRN, PASSENGER CAR INSPECTOR Primary Care Provider + Fransisca Casarez MD Unavailable Unavailable Reason for Visit * Reason Comments Medication Refill Encounter Details Date Type Department Care Team (Late st Contact Info) Description 11/13/2023 Refill [facility] [address] [place] [phone] [place] [address] [place] [address] Medication Refill Social History Tobacco Use Types [...] PM CDT Legal Sex Female 3:50 AM TIMBER ROBBER Gender Identity Female 06/21/2024 1:09 PM CDT Sexual Orientation Straight 06/21/2024 1: 09 PM CDT documented as of this encounter Miscellaneous Notes * Telephone Encounter - Sujey Olivier RMA - 11/14/2023 3:01 PM TIMBER ROBBER scheduled ER ROBBER * Telephone Encounter - Yojana Castro RN - 11/14/2023 10:16 AM CST Needs JARROD ER ROBBER * Telephone Encounter - Yojana Castro RN - 11/14/2023 10:16 AM CST Per nursing clinical judgement, provider to review and approve the medication(s) order(s) if appropriate. Requested Prescriptions Pending Prescriptions Disp Refills albuterol 108 (90 Base) MCG/ACT Aerosol Solution [Pharmacy Med Name: ALBUTEROL HFA INH (200 PUFFS) 6.7GM] 6.7 g 0 Sig: INHALE 2 PUFFS BY MOUTH EVERY 6 HOURS NEEDED FOR COUGH Short Acting Inhaled Beta-Agonists Protocol Passed - 11/13/2023 11:10 AM Passed - Visit with relevant provider in past 12 months or upcoming 90 days Recent Visits Date Type Provider Dept 04/26/23 Office Visit Elayne Medina MD [facility] Showing recent visits within past 365 days and meeting all other requirements Future Appointments No visits were found meeting these conditions. Showing future appointments within next 90 days and meeting all other requirements ER ROBBER documented in this encounter Plan of Treatment Not on file documented as of this encounter Visit Diagnoses Not on filedocumented in this encounter Additional Health Concerns Infection Onset Date Last Indicated Resolved Time COVID - 19 11/14/2023 11/14/2023 11/24/2023 12:1 6 AM TIMBER ROBBER Influenza 11/14/2023 11/14/2023 11/21/2023 12:1 6 AM TIMBER ROBBER COVID - 19 08/05/2024 08/05/2024 08/06/2024 12:5 0 AM TIMBER ROBBER Assessment Noted Time PHQ-9 Depression Total Score: 0 09/17/20 8:00 AM TIMBER ROBBER documented as of this encounter Care Teams Aviation Warfare Systems Operator Relationship Specialty Start Date End Date Elayne Medina MD PCP - General Family Medicine 06/13/18 11/14/23 Leny Davis, MEDIUM CYCLE SALESPERSON, PASSENGER CAR INSPECTOR [address] [place] [address] PCP - General Advanced Practice Nurse 11/15/23 Janette Hernández MD Obstetrics & Gynecology 09/18/18 12/08/23 Fransisca Casarez MD [address] [place] [address] Gynecology 12/09/23 documented as of this encounter
--- OUTSIDE RECORDS SUMMARY | 2025-06-19 17:08 | XMS_ITS | Clinical Summary ---
[facility] Address [address] [place] [address] Care Team Providers Care Director Statistical Programming Name Role Phone Sparkle Arango MD Primary Care Provi bharath Allergies Active Allergy Reactions Criticality Noted Date Comments Azithromycin Dizziness Reaction: DIZZINESS, , Reaction: Dizziness, Ciprofloxacin Hcl Swelling Medium 11/03/2018 Tomato Hives Medium 11/09/2019 Medications budesonide-form oterol (SYMBICORT) 160-4.5 mcg/actuation inhaler inhale 2 puff by inhalation route 2 times every day in the morning and evening 0 Inhaler 0 7 Active loratadine (CLARITIN) 10 mg tablet take 1 tablet by oral route every day 0 0 7 Active fluticasone (FLOVENT DISKUS) 50 mcg/actuation diskus inhaler inhale 1 puff by inhalation route 2 times every day 0 Blister 0 7 Active ergocalciferol (VITAMIN D2) 50,000 unit capsule take 1 capsule by oral route every week 0 0 7 Active fluticasone-saranya anterol (BREO ELLIPTA) 100-25 mcg/dose diskus inhaler inhale 1 puff by inhalation route every day at the same time each day 0 Blister 0 7 Active ranitidine (ZANTAC) 150 mg capsule take 1 capsule by oral route 2 times every day 0 0 7 Active cyclobenzaprine (FLEXERIL) 10 mg tablet Take 1 tablet (10 mg total) by mouth 3 (three) times a day as needed for muscle spasms 12 tablet 0 Active Additional Information Patient not taking.Reported on 10/07/2022 traMADoL (ULTRAM) 50 mg tablet Take 1 tablet (50 mg total) by mouth every 4 (four) hours as needed for pain 20 tablet 0 Active Additional Information Patient not taking.Reported on 10/07/2022 SUMAtriptan (IMITREX) 50 mg tablet Take 50 mg by mouth daily as needed Active fluconazole (DIFLUCAN) 150 mg tabletIndicatio ns:Antibiotic-i nduced yeast infection Take 1 tablet (150 mg total) by mouth as directed Take one tab now. Repeat in 7 days if symptoms persist. 2 tablet 3 Active ibuprofen (ADVIL,MOTRIN) 800 mg tablet Take 1 tablet (800 mg total) by mouth 3 (three) times a day 90 tablet 3 Active Active Problems Problem Noted Date Diagnosed Date MARYBEL (obstructive sleep apnea) 05/24/2017 Hypersomnia with sleep apnea 05/24/2017 Morbid obesity with BMI of 40.0-44.9, adult 05/04 Surgical History Surgery Date Site/Laterality Comments CHOLECYSTECTOMY Medical History Medical History Date Comments Cerebrovascular accident (CVA) (HCC) Stroke; Comments: BW 02/22/2017 -Heat Stroke Depression Depression Migraine headache Headache, migr teresita Headache, tension-type Headache, tension Family History Medical History Relation Name Comments Diabetes Maternal Grandmother Diabete s mellitus; Hypertension Maternal Grandmother Hyperte nsion; Uterine cancer Maternal Grandmother Cance r, uterine; Headache Mother Headaches; Hypertension Mother Hypertension; Stroke Mother Stroke; Uterine cancer Mother Cancer, uteri ne; Seizures Mother's Sister Seizure diso rder; Relation Name Status Comments Maternal Grandmother Mother Mother's Sister Social History Tobacco Use Types Packs/Day Years Used Date Smoking Tobacco: Never Smokeless Tobacco: Never Tobacco Cessation:Counseling Given: Not Answered Alcohol Use Standard Drinks/Week Comments Yes 0 (1 standard drink = 0.6 oz pur e alcohol) rarely Comments No Sex and Gender Information Value Date Recorded Sex Assigned at Not on file Legal Sex Female 4:03 PM SPD TECH Gender Identity Not on file Sexual Orientation Not on file Obstetrics History Last Filed Vital Signs Vital Sign Reading Time Taken Comments Blood Pressure 116/72 10/07/2022 7:06 PM SPD TECH Pulse 92 10/07/2022 7:06 PM SPD TECH Temperature 38.5 C (101.3 F) 10/07/2022 7:06 PM SPD TECH Respiratory Rate 25 10/07/2022 7:06 PM SPD TECH Oxygen Saturation 98% 10/07/2022 7:06 PM SPD TECH Inhaled Oxygen Concentration - - Weight 130.1 kg (286 lb 12.8 oz) 10/07/2022 7:06 PM SPD TECH Height 170.2 cm (5' 7) 10/07/2022 7:06 PM SPD TECH Body Mass Index 44.92 10/07/2022 7:06 PM SPD TECH Plan of Treatment Health Maintenance Due Date Last Done Comments Breast Cancer Screening-Mammogram 1984 Cervical Cancer Screening 1984 Depression Screening 1984 Hepatitis C Screening 1984 Varicella Vaccines (1 of 2 - 13+ 2-dose series) 1997 Regular Well Visit/Exam 18-64 2002 HPV Vaccines (1 - 3-dose SCD M series) 2011 Pneumococcal vaccine <65 (2 of 2 - PCV) 03/30/2013 03/30/2012 DTaP/Tdap/Td Vaccine (7 - Td or Tdap) 03/30/2022 03/30/2012, 07/07/1999, 07/07/1989, Additional history exists Influenza Vaccine (#1) 2025 3, 06/06/2019, 09/18/2018, Additional history exists Hepatitis B Screening Completed 11/20/1999 , 07/07/1999, 12/11/1996 Insurance [facility] Care Teams Director Statistical Programming Relationship Specialty Start Date End Date Sparkle Arango MD [address] [place] [id number] PCP - General 03/22/17
--- OUTSIDE RECORDS SUMMARY | 2025-06-19 17:08 | XMS_ITS | Clinical Summary ---
Author Organization [facility] Address [address] [place] [address] Care Team Providers Care Lamp Cleaner Street Light Name Role Phone Elayne Medina MD Primary Care Provider [phone] Source Comments [facility],non-owned Affiliates and Associated Physician Practices is amultiple site organization consisting of ambulatory clinics and hospital sitesin [place], [place], [place] and [place]. This disclosure is being madepursuant to the Care Everywhere program and may not contain all information available regarding this patient. Last updated 18.[facility] Datavail Allergies Active Allergy Reactions Criticality Noted Date Comments Azithromycin Dizziness 01/31/2012 Medications * Be aware that medications may not be up to date on this document. Alwaysverify current medications with the patient. polyethylene glycol 3350 (MIRALAX) packet Take 17 g by mouth once daily. 14 Packet 1 2 Active ranitidine (ZANTAC) 150 MG tablet Take 1 Tab by mouth 2 times daily. 60 Tab 5 2 Active Vit-Fe Fumarate-FA ( VITAMIN) 28-0.8 MG tabletIndicatio ns: Take 1 Tab by mouth once daily. Indications: Active ibuprofen (MOTRIN) 600 MG tablet Take 1 Tab by mouth every 6 hours as needed for Pain. 60 Tab 3 2 Active docusate sodium (COLACE) 100 MG capsule Take 1 Cap by mouth 2 times daily. 60 Cap 3 2 Active ferrous sulfate 325 (65 FE) MG tablet Take 1 Tab by mouth daily with breakfast. 30 Tab 0 2 Active Active Problems Patient Care Coordination No te Formatting of this note migh t be different from the original. 1x wk NST will be done at the office of Dr. Jian Underwood. [phone] office [phone] fax PER PATIENT REQUEST/TRANSPORTATION ISSUES. THE ABOVE PHYSICIAN HAS AGREED. ORDER FAXED. Problem Noted Date Diagnosed Date Asthma 01/31/2012 History of delivery, currently 01/31/2012 Late care 01/31/2012 Supervision of other high-risk 012 Overview (08/10/2015): O+/NI/-/-, NR GC/CT: neg/neg SS Screen: neg 12.4/36.5/323 UDS: neg GCT 86 Twin gestation, dichorionic diamniotic 2 Overview (12/28/2011): 12/10/2011 at OSH: Twin A- posterior placenta Twin B- anterior placenta Concordant growth membrane Immunizations Immunization Administration Dates Next Due MMR 03/30/2012 PNEUMOCOCCAL PPSV23 03/30/2012 TDAP (7yrs+) 03/30/2012 Family History Medical History Relation Name Comments Down's Syndrome Maternal Aunt Diabetes Maternal Grandmother Asthma Mother Breast Cancer at or under age 50 Mother Cancer Mother Cancer - Uterine Mother Hypertension Mother Relation Name Status Comments Maternal Aunt Maternal Grandmother Mother Social History Tobacco Use Types Packs/Day Years Used Date Smoking Tobacco: Never Alcohol Use Standard Drinks/Week Comments No 0 (1 standard drink = 0.6 oz pur e alcohol) Comments Unknown Sex and Gender Information Value Date Recorded Sex Assigned at Not on file Legal Sex Female 1:16 PM SURVEY RESEARCH MANAGER Gender Identity Not on file Sexual Orientation Not on file Last Filed Vital Signs Vital Sign Reading Time Taken Comments Blood Pressure 107/65 03/31/2012 7:35 AM CDT Pulse 62 03/31/2012 7:35 AM CDT Temperature 36.8 C (98.2 F) 03/31/2012 7:35 AM CDT Respiratory Rate 18 03/31/2012 7:35 AM CDT Oxygen Saturation 99% 03/30/2012 8:10 AM CDT Inhaled Oxygen Concentration - - Weight 115.2 kg (254 lb) 03/29/2012 10:26 AM CDT Height 170.2 cm (5' 7) 03/29/2012 10:26 AM CDT Body Mass Index 39.78 03/29/2012 10:26 AM CDT Plan of Treatment Health Maintenance Due Date Last Done Comments MAMMOGRAM 1984 HIV SCREENING 1999 HEPATITIS C SCREENING 03/19/2002 HEPATITIS B VACCINE (1 of 3 - 19+ 3-dose series) 2003 HPV VACCINE (1 - 3-dose SCDM series) 2011 PNEUMOCOCCAL VACCINE (2 of 2 - PCV) 03/30/2013 03/30/2012 PAP SMEAR 01/30/2015 01/31/2012 DTAP/TDAP/TD VACCINES (2 - T d or Tdap) 03/30/2022 03/30/2012 LIPID TESTING 06/13/2023 06/13/2018 DEPRESSION SCREENING 10/03/2024 COVID-19 VACCINE ( - 2023-2 5 season) 2025 INFLUENZA VACCINE (#1) 2025 ZOSTER VACCINE (1 of 2) 2034 HIB VACCINE Aged Out No longer eligi ble based on patient's age to complete this topic MENINGOCOCCAL (Group B) VACC INE SHARED DECISION-MAKING Aged Out No longer eligibl e based on patient's age to complete this topic MENINGOCOCCAL GROUPS A/C/Y/W VACCINE Aged Out No longer eligible b ased on patient's age to complete this topic Procedures Procedure Name Priority Date/Time Associated Diagnosis Comments CYTOLOGY CERVICAL/VAG DIAG THIN PREP Today 01/31/2012 2:00 PM CDT from Last 3 Months or Most Recently Relevant to Health Maintenance Results * CYTOLOGY CERVICAL/VAG DIAG THIN PREP (01/31/2012 2:00 PM CDT) Pap Smear Report See Scanned Report [facility] MICROSCOPIC CYTOLOGIC EXAMINATION OF SMEAR OF SPECIMEN FROM FEMALE GENITAL TRACT PREPARED USING PAPANICOLAOU TECHNIQUE / Unknown 01/31/2012 2:00 PM CDT 01/31/2012 3:25 PM CDT Narrative [facility] - 02/09/2012 10:58 AM CDT Performed By [facility]() [address] [place], [place] [address] us Albina Tristan MD LAB - PATHOLOGY/CYTOLOGY ORDERAB LES Final Result [facility] [address] [place] [address] from Last 3 Months or Most Recently Relevant to Health Maintenance Insurance [facility] Advance Directives * FULL RESUSCITATION (Latest Code Status on File) Date Activated Date Inactivated Comments 03/29/2012 5:00 PM 04/01/2012 3:47 AM Care Teams Lamp Cleaner Street Light Relationship Specialty Start Date End Date Elayne Medina MD PCP - General 06/22/18
--- OUTSIDE RECORDS SUMMARY | 2025-06-19 17:08 | XMS_ITS | Encounter Summary ---
Author Organization [facility] Address [address] [place] [address] Phone Care Team Providers Care Metrology Manager Name Role Phone Elayne Medina MD Primary Care Provider Janette Hernández MD Unavailable Unavail able Leny Davis APRN, MACHINE STITCHER Primary Care Provider + Fransisca Casarez MD Unavailable Unavailable Reason for Visit * Reason Comments Medication Refill Encounter Details Date Type Department Care Team (Late st Contact Info) Description 06/29/2023 [facility]ill [facility] [address] [place] [id number] [place] [address] [place] [address] Medication Refill Social History Tobacco Use Types [...] PM CDT Legal Sex Female 3:50 AM INDUCTION COORDINATION ENGINEER Gender Identity Female 06/21/2024 1:09 PM CDT Sexual Orientation Straight 06/21/2024 1: 09 PM CDT documented as of this encounter Miscellaneous Notes * Telephone Encounter - Yojana Castro RN - 06/30/2023 3:18 PM CDT Name from pharmacy: CITALOPRAM 40MG TABLETS Will file in chart as: citalopram (CeleXA) 40 MG Tablet The original prescription was reordered on 06/30/2023 by Elayne Medina MD. * Telephone Encounter - Yojana Castro RN - 06/30/2023 11:41 AM CDT duplicate documented in this encounter Plan of Treatment Not on file documented as of this encounter Visit Diagnoses Diagnosis Depression with anxiety Dysthymic disorder documented in this encounter Additional Health Concerns Infection Onset Date Last Indicated Resolved Time COVID - 19 11/14/2023 11/14/2023 11/24/2023 12:1 6 AM INDUCTION COORDINATION ENGINEER Influenza 11/14/2023 11/14/2023 11/21/2023 12:1 6 AM INDUCTION COORDINATION ENGINEER COVID - 19 08/05/2024 08/05/2024 08/06/2024 12:5 0 AM INDUCTION COORDINATION ENGINEER Assessment Noted Time PHQ-9 Depression Total Score: 0 09/17/20 8:00 AM INDUCTION COORDINATION ENGINEER documented as of this encounter Care Teams Metrology Manager Relationship Specialty Start Date End Date Elayne Medina MD PCP - General Family Medicine 06/13/18 11/14/23 Leny Davis, AUCTION CLERK, MACHINE STITCHER [address] [place] [address] PCP - General Advanced Practice Nurse 11/15/23 Janette Hernández MD Obstetrics & Gynecology 09/18/18 12/08/23 Fransisca Casarez MD [address] [place] [address] Gynecology 12/09/23 documented as of this encounter
--- OUTSIDE RECORDS SUMMARY | 2025-06-19 17:08 | XMS_ITS | Encounter Summary ---
Author Organization [facility] Address [address] [place] [address] Phone Care Team Providers Care Supervisor Hairspring Fabrication Name Role Phone Leny Davis APRN, HVAC TECH Primary Care Provider + Fransisca Casarez MD Unavailable Unavailable Reason for Visit * Reason Comments Medication Refill Encounter Details Date Type Department Care Team (Late st Contact Info) Description 12/14/2023 Refill [facility] - Family Medicine - [place] [address] [place] [address] Traci Gutierrez APRN, MARI [address] [address] Medication Refill Social History Tobacco Use Types Packs/Day Years Used Date Smoking Tobacco: Never Smokeless Tobacco: Never Alcohol Use Standard Drinks/Week Comments Yes 0 (1 standard drink = 0.6 oz pur e alcohol) occasioanally [facility] Utilities Answer Date Recorded In the past 12 months has [employer] electric, gas, oil, or water company threatened [...] often do you attend chur ch or synagogue services? More than 4 times per year 12/09/2023 Do you belong to any clubs o r organizations such as religion groups, unions, fraternal or athletic groups, or [...] Total Score - Questions 1-9 0 09/02 [facility] - Occupational [...] place to sleep or slept in a mcfp (including now)? No 12/09/2023 Education Answer Date Recorded What is the highest level of school you have completed or the highest degree you have received? Some college, no degree 06/19/2020 Sexually Active Control Partners Comments Yes Male Comments No Sex and Gender Information Value Date Recorded Sex Assigned at Female 06/21/2024 1:09 PM CDT Legal Sex Female 3:50 AM GRE INSTRUCTOR Gender Identity Female 06/21/2024 1:09 PM CDT Sexual Orientation Straight 06/21/2024 1: 09 PM CDT documented as of this encounter Miscellaneous Notes * Telephone Encounter - Yojana Castro RN - 12/14/2023 12:17 PM CDT Medication failed the protocol, provider to review and approve the medication order if appropriate. Requested Prescriptions Pending Prescriptions Disp Refills citalopram (CeleXA) 40 MG Tablet [Pharmacy Med Name: CITALOPRAM 40MG TABLETS] 30 Tablet 5 Sig: TAKE 1 TABLET BY MOUTH DAILY Citalopram (Celexa) (6 Month Refill Only) Protocol Failed - 12/14/2023 3:32 AM Failed - Has an encounter in the [...] days Recent Visits Date Type Provider Dept 12/09/23 Telemedicine Leny Davis APRN, CNP [facility] 11/28/23 Office Visit Leny Davis APRN, CNP [facility] Showing recent visits within past 182 days and meeting all other requirements Future Appointments No visits were found meeting these conditions. Showing future appointments within next 90 days and meeting all other requirements Passed - Patient has established therapy with Citalopram for at least 6 months documented in this encounter Plan of Treatment Not on file documented as of this encounter Visit Diagnoses Diagnosis Depression with anxiety Dysthymic disorder documented in this encounter Additional Health Concerns Infection Onset Date Last Indicated Resolved Time COVID - 19 08/05/2024 08/05/2024 08/06/2024 12:5 0 AM GRE INSTRUCTOR Assessment Noted Time PHQ-9 Depression Total Score: 0 09/17/20 22 8:00 AM GRE INSTRUCTOR documented as of this encounter Care Teams Supervisor Hairspring Fabrication Relationship Specialty Start Date End Date Leny Davis APRN, CNP [address] [place] [address] PCP - General Advanced Practice Nurse 11/15/23 Fransisca Casarez MD [address] [place] [address] Gynecology 12/09/23 documented as of this encounter
--- OUTSIDE RECORDS SUMMARY | 2025-06-19 17:08 | XMS_ITS | Encounter Summary ---
Author Organization [facility] Address [address] [place] [address] Phone Care Team Providers Care Bid Manager Name Role Phone Elayne Medina MD Primary Care Provider Janette Hernández MD Unavailable Unavail able Leny Davis APRN, COURT DEPUTY Primary Care Provider + Fransisca Casarez MD Unavailable Unavailable Reason for Visit * Reason Comments Medication Refill Encounter Details Date Type Department Care Team (Late st Contact Info) Description 02/08/2021 Refill [facility] [address] [place] [address] [place] [address] [place] [address] Medication Refill Social History Tobacco Use Types [...] PM CDT Legal Sex Female 3:50 AM CAR DUMPER OPERATOR Gender Identity Female 06/21/2024 1:09 PM CDT Sexual Orientation Straight 06/21/2024 1: 09 PM CDT documented as of this encounter Plan of Treatment Not on file documented as of this encounter Visit Diagnoses Not on filedocumented in this encounter Additional Health Concerns Infection Onset Date Last Indicated Resolved Time COVID - 19 08/03/2021 08/03/2021 08/23/2021 12:1 6 AM CAR DUMPER OPERATOR COVID - 19 Confirmed 08/03/2021 08/03/2021 021 12:16 AM CAR DUMPER OPERATOR COVID - 19 11/14/2023 11/14/2023 11/24/2023 12:1 6 AM CAR DUMPER OPERATOR Influenza 11/14/2023 11/14/2023 11/21/2023 12:1 6 AM CAR DUMPER OPERATOR COVID - 19 08/05/2024 08/05/2024 08/06/2024 12:5 0 AM CAR DUMPER OPERATOR Assessment Noted Time PHQ-9 Depression Total Score: 0 06/20/20 11:18 AM CDT documented as of this encounter Care Teams Bid Manager Relationship Specialty Start Date End Date Elayne Medina MD PCP - General Family Medicine 06/13/18 11/14/23 Leny Davis APRN, COURT DEPUTY [address] [place] [address] PCP - General Advanced Practice Nurse 11/15/23 Janette Hernández MD Obstetrics & Gynecology 09/18/18 12/08/23 Fransisca Casarez MD [address] [place] [address] Gynecology 12/09/23 documented as of this encounter
[2025-06-19 17:13] VITALS: BP 132/91; PULSE 73; RESP 16; TEMP 36.6; O2SAT 100
--- NOTE | 2025-06-19 17:45 | ED_ITS ---
HPI - Extremity Injury (Upper) General Chief Complaint: Extremity Injury, Upper Stated Complaint: right wrist pain Time Seen by Provider: 06/19/25 17:32 Source: patient and RN notes reviewed Mode of arrival: ambulatory Limitations: no limitations History of Present Illness HPI narrative: Patient presents today complaining of pain to the right wrist x1 month. Reports prior to onset of pain her wrist popped. Denies injury or trauma. She has tried Tylenol and a wrist brace without much improvement and currently rates her pain 5/10. Does report previous fracture. Denies numbness or tingling. Pain increases with movement. Related Data Home Medications ?Medication ?Instructions ?Recorded ?Confirmed ?Last Taken ?Type albuterol sulfate 90 mcg/actuation inhalation 06/19/25 Unknown History aerosol inhaler buspirone 15 mg tablet mg 06/19/25 Unknown History cetirizine 10 mg tablet mg 06/19/25 Unknown History citalopram 40 mg tablet mg 06/19/25 Unknown History famotidine 20 mg tablet mg 06/19/25 Unknown History fluticasone 250 mcg-salmeterol 50 inhalation 06/19/25 Unknown History mcg/dose blistr powdr for inhalation (Advair Diskus) norethindrone acetate 1.5 tablet 06/19/25 Unknown His tory mg-ethinyl estradiol 30 mcg tablet (Tatiana) pantoprazole 40 mg tablet,delayed mg PO 06/19/25 Unkn own History release Allergies Allergy/AdvReac Type Severity Reaction Status Date / Time azithromycin (From Zithromax Allergy Severe Unresponsiv Verified 06/19/25 17:15 Z-Reymundo) e ciprofloxacin (From Cipro) Allergy Severe Hives Verified 06/19/25 17:15 [facility] Past Medical History Medical History (Updated 06/19/25 @ 18:06 by Seema Haider, [facility], ) GERD (gastroesophageal reflux disease) Comments At time of signature, I have reviewed and agree with nursing past medical, surgical, social and family history unless otherwise noted. Please see nursing chart for further information. There is no relevant family history pertinent to the presenting complaint Exam Narrative: GENERAL: Well-appearing, well-nourished, and in no acute distress. HEAD: Normocephalic, atraumatic. EYES: EOMI. No redness or drainage. Conjunctivae normal. ENT: Mucous membranes pink and moist. NECK: Normal AROM. CHEST: No respiratory distress. EXTREMITIES: Right wrist: Tenderness to the dorsum of the wrist extending to the thenar eminence. No edema, ecchymosis, erythema noted. No snuffbox tenderness. Pain with extension. Distal sensation intact. Capillary refill normal. Radial pulse normal. SKIN: Warm, dry, no rash. Capillary refill normal. Normal skin turgor. NEURO: No focal deficits. Alert and oriented x3. Gait steady. PSYCH: Normal affect. No signs of depression or anxiety. Course Course Level of Care: Express Care Visit Vital Signs Vital signs: Vital Signs Temperature 98 F 06/19/25 17:13 Pulse Rate 73 06/19/25 17:13 Respiratory Rate 16 06/19/25 17:13 Blood Pressure 132/91 H 06/19/25 17:13 Pulse Oximetry 100 06/19/25 17:13 Oxygen Delivery Room Air 06/19/25 17:13 Temperature 98 F 06/19/25 17:13 Pulse Rate 73 06/19/25 17:13 Respiratory Rate 16 06/19/25 17:13 Blood Pressure 132/91 H 06/19/25 17:13 Pulse Oximetry 100 06/19/25 17:13 Oxygen Delivery Room Air 06/19/25 17:13 Reviewed MDM - Extremity Injury (Upper) MDM Narrative Medical decision making narrative: 40-year-old female patient presents today with right wrist pain x1 month after popping. Denies injury or trauma. Tylenol with mild relief. Previous fracture to affected wrist. Upon exam patient has tenderness to the dorsum and thenar eminence. X-rays negative. Recommend PCP or orthopedic follow-up for further evaluation. Vital signs stable. Anticipatory guidance given. Differential Diagnosis Differential diagnosis: Likely sprain and strain of wrist and fracture of wrist Imaging Data Radiologist's impression: ITS Impressions Wrist X-Ray 06/19/25 17:58 Impression: No acute fracture or malalignment. Critical Care Time Critical Care Time Critical Care Time: No Discharge Plan Discharge Clinical Impression: Arthralgia of right wrist Patient Disposition: Home Condition: Stable Instructions: Arthralgia (ED) Additional Instructions: Your wrist x-ray is negative. Ice and elevate the wrist. Continue Tylenol or take motrin for pain if needed. Follow-up with orthopedics/hand specialist for further evaluation of your discomfort. Your blood pressure was elevated above 120/80 today at Urgent Care. This puts you above the threshold for follow up. Please schedule a followup visit with your personal physician as soon as possible, for further evaluation and treatment. Even blood pressure exceeding 120/80 may indicate pre-hypertension. Patient Language: Japanese Prescriptions: No Action fluticasone propion-salmeterol [Advair Diskus] 250-50 mcg/dose blister with device INHALATION citalopram 40 mg tablet cetirizine 10 mg tablet norethindrone ac-eth estradiol [Tatiana] 1.5-30 mg-mcg tablet famotidine 20 mg tablet pantoprazole 40 mg tablet,delayed release (DR/EC) PO albuterol sulfate 90 mcg/actuation HFA aerosol inhaler INHALATION buspirone 15 mg tablet Follow-up/Referrals: Nic Yañez MD [Physician, Plastic Surgery] Leny Davis RN [Primary Care Provider, Nursing] Jeramy Beach MD [Physician, Orthopedics] Time of Disposition: 18:09
== END 2025-06-19 18:16 | disposition home or self-care (01) ==
PROVIDERS: Emergency Provider Nurse Practitioner
DX: M25.531 Pain in right wrist (principal); K21.9 Gastro-esophageal reflux disease without esophagitis
CPT/HCPCS: 73110; 99203; G0463